=== PATIENT | female | born 1965 | race Caucasian/White ===

== ENCOUNTER 2020-09-02 00:20 | Observation (INO) ==
[2020-09-02] MEDS ORDERED: ALBUTEROL SULFATE/IPRATROPIUM 3 ML NEBU IH ONE ×2 (00:27→00:41)
[2020-09-02] MEDS ORDERED: FUROSEMIDE 10 MG/ML VIAL ONE (00:30)
[2020-09-02] MEDS ORDERED: NITROGLYCERIN 0.4 MG/TAB BTL SL ONE (00:30)
[2020-09-02] MEDS ORDERED: FUROSEMIDE 10 MG/ML VIAL IV ONE (00:37)
--- NOTE | 2020-09-02 00:44 | ERNOTE ---
Dyspnea - Date Date of Service: 09/02/20 - General Presenting Symptoms: shortness of breath, difficulty of breathing Time Seen by Provider: 09/02/20 00:33 Source: patient Exam Limitations: no limitations - Immun/Allergies/Home Medications Immunizations: IMMUNIZATION HX Immunizations Up to Date Yes History of Influenza Vaccine Yes Hx Pneumococcal Vaccination No Allergies/Adverse Reactions: Allergies No Known Allergies Allergy (Verified 06/16/20 12:51) Home Medications: HOME MEDICATIONS atorvastatin 40 mg tablet 40 mg PO DAILY #30 tab 11/29/18 [Last Taken Unknown] carvedilol 3.125 mg tablet 3.125 mg PO BID #60 tab 11/29/18 [Last Taken Unknown] lisinopril 2.5 mg tablet 5 mg PO DAILY #30 tab 11/29/18 [Last Taken Unknown] aspirin 81 mg tablet,delayed release 81 mg PO DAILY 12/20/18 [Last Taken Unknown] sennosides 8.6 mg tablet 8.6 mg PO QD-BID PRN 04/14/20 [Last Taken Unknown] albuterol sulfate 90 mcg/actuation aerosol inhaler See Rx Instructions .ROUTE .COMPLEX #18 g 07/01/20 [Last Taken Unknown] - History of Present Illness Narrative: 55-year-old female complaining of sudden onset tonight of severe shortness of breath diaphoresis she said she is in CHF from past experience her last episode was a year ago right now she denies any chest pain to her blood pressure is extremely elevated she has not taken today's medication she says she has been increasing shortness of breath over the last 3 days Date (Duration): 09/02/20 Time (Timing): 00:40 Severity: severe 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 Frequency of episodes: Reports: frequent episodes Modifying Factors - (Improves): Reports: albuterol, oxygen Modifying Factors (Worsens): Reports: albuterol, oxygen Associated Symptoms-Dyspnea: Reports: cough, wheezing Review of Systems - Review of Systems Constitutional: Present: diaphoresis EYE: Present: no symptoms reported ENT: Present: no symptoms reported Respiratory: Present: shortness of breath, cough, orthopnea, wheezing Cardiology: Present: palpitations Gastrointestinal/Abdominal: Present: no symptoms reported Genitourinary: Present: no symptoms reported Musculoskeletal: Present: no symptoms reported Skin: Present: no symptoms reported Neurological: Present: no symptoms reported Endocrine: Present: no symptoms reported Hematologic/Lymphatic: Present: no symptoms reported Psych: Present: no symptoms reported All Other Systems: All systems neg except as marked Medical History (Last Reviewed 09/02/20 @ 00:42 by Tariq Torres MD) COVID-19 vaccine series completed (Acute) COVID-19 vaccine administered (Acute) Dehydration (Resolved) DAJUAN (acute kidney injury) (Resolved) I expect her kidneys to completely recover from the DAJUAN due to dehydration. She should have a follow-up BMP in a couple of weeks. 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 Hyperglycemia, unspecified (Resolved) Anxiety (Chronic) Syncope (Acute) Reactive hypoglycemia (Acute) COPD (chronic obstructive pulmonary disease) (Acute) Migraine (Acute) Hepatitis C (Chronic) Congestive heart failure (CHF) (Chronic) CAD (coronary artery disease) (Chronic) She has had a recent multivessel CABG Hypertension (Chronic) Encounter for Papanicolaou smear of cervix Onset Date: ~04/2000 Heart attack Surgical History: Surgical History (Last Reviewed 09/02/20 @ 00:42 by Tariq Torres MD) Hx of CABG (Acute) Still in cardiac rehab. She is about snf through her program. Stented coronary artery Family History: Family History (Last Reviewed 09/02/20 @ 00:42 by Felisha Caldera RN) Mother Hypertension Diabetes Heart failure Arthritis CVA (cerebral vascular accident) Migraine Father CVA (cerebral vascular accident) Social History: (Last Reviewed 09/02/20 @ 00:42 by Felisha Caldera RN) Social History: Marital status: Single household members: significant other number of children: 0 number of grandchildren: 0 current occupational status: employed current occupation: [employer] Highest level of school completed/degree received: high school graduate Sexually Active: No Service: No Tobacco: Smoking Status: Former smoker Alcohol: alcohol intake: former alcohol intake frequency: holiday/special occasion Substance Use: substance use type: does not use Dietary Habits: caffeine: No daily servings of milk/calcium: 2-4 Exercise: Physical activity type: walking How many days of moderate to strenuous exercise, like a brisk walk, did you do in the last 7 days: 5 duration: 30-45 minutes/day Physical Exam - Physical Exam General Appearance: Present: wd/wn, alert, severe distress Head Exam: Present: normal inspection Eye Exam: Normal inspection: bilateral Ears, Nose, Throat: Present: normal ENT inspection Neck: Present: normal inspection Respiratory: Present: respiratory distress Cardiovascular/Chest: Present: tachycardia Gastrointestinal/Abdominal: Present: normal bowel sounds Back Exam: Present: normal inspection Extremity Exam: Present: normal inspection Neurological Exam: Present: alert, oriented Lymphatic Exam: Present: no adenopathy Progress - Results and Orders Patient's Lab Results:: I have reviewed the patient's lab results. Results and Orders: Laboratory Tests 09/02/20 09/02/20 00:47 00:47 WBC 17.6 H RBC 4.09 L Hgb 12.8 Hct 40.7 MCV 99.5 MCH 31.3 H MCHC 31.4 L RDW 13.2 Plt Count 338 Sodium 138 Plasma Sodium 141 Potassium 5.3 H Chloride 106 Carbon Dioxide 11.9 L Anion Gap 25.4 H BUN 20 D Creatinine 1.31 D Est GFR (Non-Af Amer) 44 L D BUN/Creatinine Ratio 15.3 Random Glucose 310 H Calcium 8.3 Calcium Adj for Albumin 8.5 Total Bilirubin 0.5 AST 69 H ALT 67 Alkaline Phosphatase 81 Troponin I Less than 0.017 B-Natriuretic Peptide 5145 H Total Protein 7.9 Albumin 3.3 L Laboratory Tests 09/02/20 00:47 WBC 17.6 H RBC 4.09 L Hgb 12.8 Hct 40.7 MCV 99.5 MCH 31.3 H MCHC 31.4 L RDW 13.2 Plt Count 338 Neutrophils % (Manual) 55 Lymphocytes % (Manual) 36 Monocytes % (Manual) 4 Eosinophils % (Manual) 5 H Neutrophils # (Manual) 9.7 H Lymphocytes # (Manual) 6.3 H Monocytes # (Manual) 0.7 Eosinophils # (Manual) 0.9 H - Vital Signs Patient's Vital Signs:: I have reviewed the patient's vital signs. Vital Signs: Vital Signs 09/02/20 00:30 Temperature 36.3 C Pulse Rate 125 H Respiratory Rate 34 H Blood Pressure 214/133 H O2 Sat by Pulse Oximetry 88 L - EKG EKG #1 EKG: supraventricular tachycardia EKG read: Interp. by me EKG Comments: EKG sinus tachycardia heart rate 134 possible old anterior wall IA which was seen on 03/2020 - X-Ray X-Ray #1 X-Ray: chest Interpretation: Interp. by me X-ray Comments: Chest x-ray consistent with congestive heart failure - Progress/Reassessment Chief Complaint: Dyspnea Progress Note-Subjective: 09/02/20 01:55 Patient feeling absolutely much better blood pressure is 116/83 heart rate 112 O2 sats are 98% so we are slowly starting the process of weaning the patient back then Plan - Plan Plan: Patient will be admitted to telemetry Dr. Valenzuela, attending Departure Clinical Impression: CAD (coronary artery disease), Hypertension, Congestive heart failure (CHF) - Departure Disposition: Short Term Hospital Inpatient Condition: Stable Additional Instructions: Admit to telemetry Dr Valenzuela Referrals: Nano Vásquez DO [Primary Care Provider] -
[2020-09-02] MEDS ORDERED: [UNRECOGNIZED DRUG - OTHER] IV SCH (00:45)
[2020-09-02] MEDS ORDERED: NITROGLYCERIN IV SCH (00:45)
[2020-09-02 01:01] LABS: Hematocrit 40.7 % (37.0-47.0); Hemoglobin 12.8 gm/dL (12.5-16.0); Mean Cell Volume 99.5 fl (78-100); Mean Corpuscular Hemoglobin 31.3 pg (27-31); Mean Corpuscular Hgb Conc 31.4 g/dl (32-36); Mean Platelet Volume 9.7 fl (8-12.5); Platelet Count 338 K/mm3 (150-450); Red Blood Count 4.09 M/mm3 (4.2-5.4); Red Cell Distribution Width 13.2 % (11.5-14.0); White Blood Count 17.6 K/mm3 (4.0-10.5)
[2020-09-02 01:03] LABS: Total Cells Counted 100
[2020-09-02 01:14] LABS: ALT 67 U/L (19-67); AST 69 U/L (0-48); Albumin * 3.3 gm/dl (3.4-5.0); Alkaline Phosphatase * 81 U/L (50-170); Anion Gap 25.4 mmol/L (6.8-13.8); BNP * 5145 pg/mL (5-205); BUN/Creatinine Ratio 15.3 (9.0-21.6); Bilirubin, Total 0.5 mg/dL (0.0-1.1); Blood Urea Nitrogen 20 mg/dL (3-23); Ca. Corrected For Albumin 8.5 mg/dL (8.4-10.2); Calcium * 8.3 mg/dL (7.9-10.9); Carbon Dioxide 11.9 mmol/L (24-32.6); Chloride 106 mmol/L (97-106); Glucose * 310 mg/dL (70-110); Sodium 138 mmol/L (132-142); Total Protein 7.9 gm/dL (6.2-8.2); Troponin I Less than 0.017 ng/mL (0.00-0.10)
[2020-09-02 01:15] LABS: Potassium 5.3 mmol/L (3.4-4.6)
[2020-09-02 01:27] LABS: Eosinophil 5 % (0-3); Lymphocyte 36 % (20-51); Monocyte 4 % (0-9); Neutrophil 55 % (42-75); Neutrophil # 9.7 K/mm3 (1.3-6.0)
[2020-09-02 01:29] LABS: Giant Platelets Trace; Platelet Estimate Normal (NORMAL)
[2020-09-02 01:30] LABS: Ovalocytes Trace
[2020-09-02] MEDS ORDERED: ASPIRIN 81 MG TAB.CHEW PO ONE (01:59)
[2020-09-02] MEDS ORDERED: INSULIN REGULAR, HUMAN 100 UNITS/ML VIAL IV ONE (02:02)
[2020-09-02] MEDS ORDERED: LISINOPRIL 2.5 MG TABLET ONE (02:13)
[2020-09-02] MEDS ORDERED: CARVEDILOL 3.125 MG TABLET ONE (02:14)
[2020-09-02] MEDS: ROSUVASTATIN CALCIUM 20 MG TABLET PO ONE ×2 (02:21→04:15)
[2020-09-02] MEDS ORDERED: CARVEDILOL 3.125 MG TABLET PO ONE (02:30)
[2020-09-02] MEDS ORDERED: LISINOPRIL 2.5 MG TABLET PO ONE (02:30)
[2020-09-02] MEDS ORDERED: ROSUVASTATIN CALCIUM 10 MG TABLET ONE (04:12)
[2020-09-02] MEDS ORDERED: ACETAMINOPHEN 500 MG TABLET PO PRN (09:40)
[2020-09-02] MEDS ORDERED: SENNOSIDES 8.6 MG TABLET PO PRN (09:42)
[2020-09-02] MEDS ORDERED: ALBUTEROL SULFATE 2.5 MG/0.5 ML VIAL.NEB IH PRN (09:45)
--- NOTE | 2020-09-02 10:08 | HP ---
Chief Complaint - Chief Complaint Date of Service: 09/02/20 Time of Service: 09:56 Chief Complaint: I had shortness of breath History of Present Illness: 55-year-old female with past medical history of CAD with CABG, CHF, old IL in 2019, COPD, hypertension, and migraine headaches was brought to the ER by EMS for evaluation of worsening shortness of breath at rest and on exertion and generalized weakness. Patient has a long history of CAD and underwent a CABG several years ago, she also had an IL that occurred 1 year ago. Since then the patient has been seeing a crocheter who has been treating her for CHF. However upon questioning she denies taking daily diuretics but takes other cardiac medications. The patient became increasingly dyspneic and felt weak. She reports this felt exactly like the last time she had an exacerbation of her CHF so called EMS to take her to the hospital for evaluation. During bedside evaluation this morning the patient admitted to drinking an excessive amount of water more than a gallon a day in order to stay hydrated, so it is very apparent that the patient overloaded with the fluid she was ingesting. She was provided with education and was instructed to follow a 1.5 L/day diet to avoid fluid overload. Medical History (Last Reviewed 09/02/20 @ 03:27 by Jenni Benítez RN) COVID-19 vaccine series completed (Acute) COVID-19 vaccine administered (Acute) Dehydration (Resolved) DAJUAN (acute kidney injury) (Resolved) I expect her kidneys to completely recover from the DAJUAN due to dehydration. She should have a follow-up BMP in a couple of weeks. She is to see her crocheter on May 04 and I expect he will repeat the lab work then. Hyperglycemia, unspecified (Resolved) Anxiety (Chronic) Syncope (Acute) Reactive hypoglycemia (Acute) COPD (chronic obstructive pulmonary disease) (Acute) Migraine (Acute) Hepatitis C (Chronic) Congestive heart failure (CHF) (Chronic) CAD (coronary artery disease) (Chronic) She has had a recent multivessel CABG Hypertension (Chronic) Encounter for Papanicolaou smear of cervix Onset Date: ~04/2000 Heart attack Surgical History: Surgical History (Last Reviewed 09/02/20 @ 03:27 by Jenni Benítez RN) Hx of CABG (Acute) Still in cardiac rehab. She is about [facility] her program. Stented coronary artery Family History: Family History (Last Reviewed 09/02/20 @ 03:27 by Jenni Benítez RN) Mother Hypertension Diabetes Heart failure Arthritis CVA (cerebral vascular accident) Migraine Father CVA (cerebral vascular accident) Social History: (Last Reviewed 09/02/20 @ 04:29 by Jenni Benítez RN) Social History: Marital status: Single household members: significant other number of children: 0 number of grandchildren: 0 current occupational status: employed current occupation: [employer] Highest level of school completed/degree received: high school graduate Sexually Active: No Service: No Tobacco: Smoking Status: Former smoker Alcohol: alcohol intake: former alcohol intake frequency: holiday/special occasion Substance Use: substance use type: does not use Dietary Habits: caffeine: No daily servings of milk/calcium: 2-4 Exercise: Physical activity type: walking How many days of moderate to strenuous exercise, like a brisk walk, did you do in the last 7 days: 5 duration: 30-45 minutes/day Peds Patient Hx - Developmental: No Pertinent Hx Peds Patient Hx - Medical: No Pertinent Hx Peds Patient Hx - Cardiac/Respiratory: No Pertinent Hx Peds Patient Hx - Surgical: No Surgical History Patient History - Cancer: No Hx of Cancer Review Of Systems (GEN) - Review of Systems Generalized/Overall Review: Present: Weakness EENTM: Present: No Symptoms Reported Respiratory: Present: Shortness of Breath Cardiac: Present: No Symptoms Reported Abdominal: Present: No Symptoms Reported Genitourinary: Present: No Symptoms Reported Musculoskeletal: Present: No Symptoms Reported Neurological: Present: No Symptoms Reported Skin: Present: No Symptoms Reported Endocrine: Present: No Symptoms Reported Immunizations: IMMUNIZATION HX Immunizations Up to Date Yes History of Influenza Vaccine Yes Hx Pneumococcal Vaccination No Allergies/Adverse Reactions: Allergies Allergy/AdvReac Type Severity Reaction Status Date / Time No Known Allergies Allergy Verified 06/16/20 12:51 Home Medications: HOME MEDICATIONS atorvastatin 40 mg tablet 40 mg PO DAILY #30 tab 11/29/18 [Last Taken Unknown] carvedilol 3.125 mg tablet 3.125 mg PO BID #60 tab 11/29/18 [Last Taken Unknown] lisinopril 2.5 mg tablet 5 mg PO DAILY #30 tab 11/29/18 [Last Taken Unknown] aspirin 81 mg tablet,delayed release 81 mg PO DAILY 12/20/18 [Last Taken Unknown] sennosides 8.6 mg tablet 8.6 mg PO QD-BID PRN 04/14/20 [Last Taken Unknown] albuterol sulfate 90 mcg/actuation aerosol inhaler See Rx Instructions .ROUTE .COMPLEX #18 g 07/01/20 [Last Taken Unknown] Exam - Exam Vital Signs: Vital Signs - Last Taken Temp 36.9 C 09/02/20 06:50 Pulse 107 H 09/02/20 06:50 Resp 18 09/02/20 06:50 BP 123/74 09/02/20 06:50 Pulse Ox 98 09/02/20 06:50 Constitutional: Present: Alert, Oriented x3, Cooperative, Well developed, Well nourished, No distress ENT Exam: Present: normal ENT inspection, hearing grossly normal Eye Exam: bilateral eye: normal inspection, PERRL, EOMI Neck: Present: non-tender, full range of motion, supple, normal inspection, trachea midline Back Exam: Present: normal inspection, no CVA tenderness, no vertebral tenderness Respiratory: Present: chest non-tender, no respiratory distress, no accessory muscle use, crackles - Bibasilar crackles worse on the right Cardiovascular/Chest: Present: regular rate, rhythm, no chest tenderness, no gallop, no JVD, no murmur, no rub, edema Peripheral Pulses: dorsalis-pedis (R): 2+, dorsalis-pedis (L): 2+ Abdomen: Present: Normal bowel sounds, soft, nontender, nondistended, no rebound tenderness, no hepatospenomegaly, no masses /Rectal: Present: Exam deferred Extremity: Present: normal range of motion, non-tender, normal inspection, no pedal edema, no calf tenderness, normal capillary refill Skin Exam: Present: normal color, warm/dry, no cyanosis Lymphatic: Present: no adenopathy Neurologic: 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: 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 II-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 nml as tested, normal cerebellar test, no motor/sensory deficits, alert, normal mood/affect, oriented x 3 Appearance: Present: appropriate appearance, appropriate insight, neat, no memory impairment Eye contact: Present: cooperative, good eye contact, normal speech Diagnostic Studies: Abnormal Lab Results 09/02/20 09/02/20 09/02/20 Range/Units 00:47 00:47 02:05 WBC 17.6 H (4.0-10.5) K/mm3 RBC 4.09 L (4.2-5.4) M/mm3 MCH 31.3 H (27-31) pg MCHC 31.4 L (32-36) g/dl Eosinophils % (Manual) 5 H (0-3) % Neutrophils # (Manual) 9.7 H (1.3-6.0) K/mm3 Lymphocytes # (Manual) 6.3 H (1.5-3.5) k/mm3 Eosinophils # (Manual) 0.9 H (0.0-0.7) k/mm3 pCO2 30.1 L (32.0-45.0) mmHg HCO3 16.0 L (21.0-28.0) mmol/L Total CO2 16.9 L (19.0-24.0) mmol/L Base Excess -8.4 L (-2.0-3.0) mmol/L ABG pH 7.34 L (7.35-7.45) Potassium 5.3 H (3.4-4.6) mmol/L Carbon Dioxide 11.9 L (24-32.6) mmol/L Anion Gap 25.4 H (6.8-13.8) mmol/L Est GFR (Non-Af Amer) 44 L D (60-130) mL/min Random Glucose 310 H (70-110) mg/dL AST 69 H (0-48) U/L B-Natriuretic Peptide 5145 H (5-205) pg/mL Albumin 3.3 L (3.4-5.0) gm/dl Laboratory Results WBC 17.6 K/mm3 (4.0-10.5) H 09/02/20 00:47 RBC 4.09 M/mm3 (4.2-5.4) L 09/02/20 00:47 Hgb 12.8 gm/dL (12.5-16.0) 09/02/20 00:47 Hct 40.7 % (37.0-47.0) 09/02/20 00:47 MCV 99.5 fl (78-100) 09/02/20 00:47 MCH 31.3 pg (27-31) H 09/02/20 00:47 MCHC 31.4 g/dl (32-36) L 09/02/20 00:47 RDW 13.2 % (11.5-14.0) 09/02/20 00:47 Plt Count 338 K/mm3 (150-450) 09/02/20 00:47 MPV 9.7 fl (8-12.5) 09/02/20 00:47 Neutrophils % (Manual) 55 % (42-75) 09/02/20 00:47 Lymphocytes % (Manual) 36 % (20-51) 09/02/20 00:47 Monocytes % (Manual) 4 % (0-9) 09/02/20 00:47 Eosinophils % (Manual) 5 % (0-3) H 09/02/20 00:47 Neutrophils # (Manual) 9.7 K/mm3 (1.3-6.0) H 09/02/20 00:47 Lymphocytes # (Manual) 6.3 k/mm3 (1.5-3.5) H 09/02/20 00:47 Monocytes # (Manual) 0.7 k/mm3 (0.0-1.0) 09/02/20 00:47 Eosinophils # (Manual) 0.9 k/mm3 (0.0-0.7) H 09/02/20 00:47 Platelet Estimate Normal (NORMAL) 09/02/20 00:47 Giant Platelets Trace 09/02/20 00:47 Ovalocytes Trace 09/02/20 00:47 pCO2 30.1 mmHg (32.0-45.0) L 09/02/20 02:05 pO2 97.6 mmHg (83.0-108.0) 09/02/20 02:05 HCO3 16.0 mmol/L (21.0-28.0) L 09/02/20 02:05 Total CO2 16.9 mmol/L (19.0-24.0) L 09/02/20 02:05 Base Excess -8.4 mmol/L (-2.0-3.0) L 09/02/20 02:05 ABG pH 7.34 (7.35-7.45) L 09/02/20 02:05 ABG O2 Sat (Measured) 97.2 % (94.0-98.0) 09/02/20 02:05 Sodium 138 mmol/L (132-142) 09/02/20 00:47 Plasma Sodium 141 mmol/L (130-142) 09/02/20 00:47 Potassium 5.3 mmol/L (3.4-4.6) H 09/02/20 00:47 Chloride 106 mmol/L (97-106) 09/02/20 00:47 Carbon Dioxide 11.9 mmol/L (24-32.6) L 09/02/20 00:47 Anion Gap 25.4 mmol/L (6.8-13.8) H 09/02/20 00:47 BUN 20 mg/dL (3-23) D 09/02/20 00:47 Creatinine 1.31 mg/dL (0.4-1.4) D 09/02/20 00:47 Est GFR (Non-Af Amer) 44 mL/min (60-130) L D 09/02/20 00:47 BUN/Creatinine Ratio 15.3 (9.0-21.6) 09/02/20 00:47 Random Glucose 310 mg/dL (70-110) H 09/02/20 00:47 Calcium 8.3 mg/dL (7.9-10.9) 09/02/20 00:47 Calcium Adj for Albumin 8.5 mg/dL (8.4-10.2) 09/02/20 00:47 Total Bilirubin 0.5 mg/dL (0.0-1.1) 09/02/20 00:47 AST 69 U/L (0-48) H 09/02/20 00:47 ALT 67 U/L (19-67) 09/02/20 00:47 Alkaline Phosphatase 81 U/L (50-170) 09/02/20 00:47 Troponin I Less than 0.017 ng/mL (0.00-0.10) 09/02/20 00:47 B-Natriuretic Peptide 5145 pg/mL (5-205) H 09/02/20 00:47 Total Protein 7.9 gm/dL (6.2-8.2) 09/02/20 00:47 Albumin 3.3 gm/dl (3.4-5.0) L 09/02/20 00:47 SARS-CoV-2 (PCR) Not detected (NotDetected) 09/02/20 01:11 Assessment/Plan - Narrative Narrative: Patient was evaluated and medical chart was reviewed and decision to admit for a decompensated CHF with fluid overload was made. This morning the patient reported right-sided weakness in her upper and lower extremities which was concerning for a CVA or other acute neurological disorders. Head CT was performed and it was completely negative for any acute findings. The patient also reported that as soon as she was taken off of the oxygen her neurological symptoms completely resolved within 30 minutes. She maintained stable vitals and is resting comfortably and reports significant improvement in her breathing since being administered IV Lasix in the ER. We will keep her on telemetry for further monitoring. Also basilar patient's labs on admission, she is presenting with an acute kidney injury most likely secondary to her failing heart. IV fluid is contraindicated given her CHF at the moment, so we will optimize cardiac function in order to help with the renal function and administer IV diuretics to address the fluid overload. We will repeat labs in the morning to reevaluate this. - Assessment/Plan (1) Acute decompensated heart failure Problem: Acute (2) Fluid overload Problem: Acute (3) Hx of CABG Problem: Acute (4) COPD (chronic obstructive pulmonary disease) Problem: Acute Qualifiers: (5) Migraine Problem: Acute (6) Hepatitis C Problem: Chronic Qualifiers: (7) Congestive heart failure (CHF) Problem: Chronic (8) STEMI (ST elevation myocardial infarction) Problem: Acute (9) Acute kidney injury superimposed on CKD Problem: Acute
[2020-09-02] MEDS: FUROSEMIDE 10 MG/ML VIAL IV SCH ×2 (11:36→22:00)
[2020-09-02] MEDS: ASPIRIN 81 MG TABLET.DR PO SCH (11:39)
[2020-09-02] MEDS: LISINOPRIL 5 MG TABLET PO SCH (11:40)
[2020-09-02] MEDS: CARVEDILOL 3.125 MG TABLET PO SCH ×2 (11:40→20:51)
[2020-09-02] MEDS: PANTOPRAZOLE SODIUM 20 MG TABLET.DR PO SCH (20:55)
[2020-09-02] MEDS ORDERED: MELATONIN 3,000 MCG TABLET PO SCH (21:00)
[2020-09-02] MEDS ORDERED: ROSUVASTATIN CALCIUM 20 MG TABLET PO SCH (21:00)
[2020-09-03] MEDS: CARVEDILOL 3.125 MG TABLET PO SCH (08:20)
[2020-09-03] MEDS: PANTOPRAZOLE SODIUM 20 MG TABLET.DR PO SCH (08:20)
[2020-09-03] MEDS: LISINOPRIL 5 MG TABLET PO SCH (08:20)
[2020-09-03] MEDS: ASPIRIN 81 MG TABLET.DR PO SCH (08:21)
--- NOTE | 2020-09-03 09:13 | DS ---
(1) Acute decompensated heart failure Problem: Resolved (2) Fluid overload Problem: Resolved (3) Hx of CABG Problem: Chronic (4) COPD (chronic obstructive pulmonary disease) Problem: Chronic Qualifiers: (5) Migraine Problem: Chronic (6) Hepatitis C Problem: Chronic Qualifiers: (7) Congestive heart failure (CHF) Problem: Chronic (8) STEMI (ST elevation myocardial infarction) Problem: Chronic (9) Acute kidney injury superimposed on CKD Problem: Acute Date of Discharge:: 09/03/20 Hospital Course: 85-year-old female admitted for acute decompensated CHF with fluid overload and DAJUAN was evaluated bedside this morning was found to be afebrile and in no acute distress. Patient reports significant improvement and is eager to go home. She has maintained stable vitals and her shortness of breath has completely resolved. The patient was treated with multiple doses of IV diuretics and was placed on a fluid restricted diet and a low salt diet which she tolerated well. Auscultation of the patient's lungs this morning was completely clear so crackles have also resolved. On admission the patient had leukocytosis but no signs or symptoms of infection, she denied any fever or chills and after reviewing her record it appears this is not new for her she was encouraged to discuss this with her PCP for further evaluation. Repeat CBC done this morning revealed a decrease in the WBCs for most normal levels. The patient also had an DAJUAN upon arriving most likely due to her failing heart, so before discharge and will repeat a CMP. If there is improvement we will discharge her home with instructions follow-up with her PCP. Procedures Performed: none Results and Findings: Lab Pending Results 09/02/20 00:47: WBC 17.6 H, RBC 4.09 L, Hgb 12.8, Hct 40.7, MCV 99.5, MCH 31.3 H, MCHC 31.4 L, RDW 13.2, Plt Count 338, MPV 9.7, Neutrophils % (Manual) 55, Lymphocytes % (Manual) 36, Monocytes % (Manual) 4, Eosinophils % (Manual) 5 H, Neutrophils # (Manual) 9.7 H, Lymphocytes # (Manual) 6.3 H, Monocytes # (Manual) 0.7, Eosinophils # (Manual) 0.9 H, Platelet Estimate Normal, Giant Platelets Trace, Ovalocytes Trace 09/02/20 00:47: Sodium 138, Plasma Sodium 141, Potassium 5.3 H, Chloride 106, Carbon Dioxide 11.9 L, Anion Gap 25.4 H, BUN 20 D, Creatinine 1.31 D, Est GFR (Non-Af Amer) 44 L D, BUN/Creatinine Ratio 15.3, Random Glucose 310 H, Calcium 8.3, Calcium Adj for Albumin 8.5, Total Bilirubin 0.5, AST 69 H, ALT 67, Alkaline Phosphatase 81, Troponin I Less than 0.017, B-Natriuretic Peptide 5145 H, Total Protein 7.9, Albumin 3.3 L 09/02/20 01:11: SARS-CoV-2 (PCR) Not detected 09/02/20 02:05: pCO2 30.1 L, pO2 97.6, HCO3 16.0 L, Total CO2 16.9 L, Base Excess -8.4 L, ABG pH 7.34 L, ABG O2 Sat (Measured) 97.2 Discharge Location: Home Disposition: Home self-care Condition: Stable Face to Face Encounter completed per [facility] Guidelines: No Discharge Activity: Activity as tolerated Discharge Diet: Low salt, Other - Restrict fluids to 1.5 L a day Referrals: Nano Vásquez DO [Primary Care Provider] - Additional Patient Instructions (free text): Dr Vásquez office follow up appointment on SundaySeptember 10 at 9:45am. Prescriptions (Any new or edited meds): Furosemide 20 mg PO DAILY #20 tab Transmission Status: Received by [place] Complete Home Medications List: Complete Home Medication List: atorvastatin 40 mg tablet 40 mg PO DAILY #30 tab 11/29/18 carvedilol 3.125 mg tablet 3.125 mg PO BID #60 tab 11/29/18 lisinopril 2.5 mg tablet 5 mg PO DAILY #30 tab 11/29/18 aspirin 81 mg tablet,delayed release 81 mg PO DAILY 12/20/18 sennosides 8.6 mg tablet 8.6 mg PO QD-BID PRN 04/14/20 albuterol sulfate 90 mcg/actuation aerosol inhaler See Rx Instructions .ROUTE .COMPLEX #18 g 07/01/20 Furosemide 20 mg PO DAILY #20 tab 09/03/20
[2020-09-03] MEDS: FUROSEMIDE 10 MG/ML VIAL IV SCH (09:17)
[2020-09-03 09:20] LABS: Hematocrit 41.9 % (37.0-47.0); Hemoglobin 14.1 gm/dL (12.5-16.0); Mean Cell Volume 92.5 fl (78-100); Mean Corpuscular Hemoglobin 31.1 pg (27-31); Mean Corpuscular Hgb Conc 33.7 g/dl (32-36); Mean Platelet Volume 9.5 fl (8-12.5); Neutrophil # 6.4 K/mm3 (1.3-6.0); Neutrophil % 58.4 % (42-75.0); Platelet Count 322 K/mm3 (150-450); Red Blood Count 4.53 M/mm3 (4.2-5.4)
[2020-09-03 09:42] LABS: Albumin * 3.8 gm/dl (3.4-5.0); Anion Gap 15.6 mmol/L (6.8-13.8); BUN/Creatinine Ratio 22.1 (9.0-21.6); Bilirubin, Total 0.7 mg/dL (0.0-1.1); Ca. Corrected For Albumin 8.7 mg/dL (8.4-10.2); Calcium * 8.9 mg/dL (7.9-10.9); Carbon Dioxide 23.9 mmol/L (24-32.6); Potassium 4.5 mmol/L (3.4-4.6); Total Protein 8.8 gm/dL (6.2-8.2)
[2020-09-03 10:54] VITALS: BP 122/92
== END 2020-09-03 11:15 | disposition home or self-care (01) ==
LOC: MS 00:20 → ER 00:20 → MS 03:15
PROVIDERS: ADMIT Family Medicine; ATTEND Family Medicine
DX: I25.2 Old myocardial infarction; I50.9 Heart failure, unspecified; N17.9 Acute kidney failure, unspecified; Z87.891 Personal history of nicotine dependence; I11.0 Hypertensive heart disease with heart failure; J44.9 Chronic obstructive pulmonary disease, unspecified; I25.810 Atherosclerosis of coronary artery bypass graft(s) without angina pectoris; R06.00 Dyspnea, unspecified; R06.02 Shortness of breath